=== PATIENT | male | born 1950 | race Two or more races ===

== ENCOUNTER → 2017-08-14 | Outpatient (CLI) | payer BC, MEDICARE ==
[~2017-08-14] MED LIST: ASPI-1471 PO; DOXA1TAB38 PO; METO-253 PO; OXYC-869 PO
--- NOTE | 2017-08-14 14:32 | RADIOLOGY IMAGING REPORT ---
FACILITY: [facility] [place] PATIENT NAME: David Ramirez : 1950 MR: [id number] V: [id number] EXAM DATE: ORDERING PHYSICIAN: SELVIN ALONSO TECHNOLOGIST: Location: [facility] [place] Patient: David Ramirez : 1950 Visit/Account:[id number] Date of Sevice: 08/14/2017 CAROTID HISTORY: Conjunctival hemorrhage, uncontrolled hypertension COMPARISON: None. FINDINGS: Grayscale, duplex and color Doppler interrogation of the extracranial carotid and vertebral arteries was performed bilateral. On the right, peak systolic velocities within the common and internal carotid arteries are 90 and 94 cm/sec respectively. No significant plaque identified. Antegrade flow within the common, internal a nd external carotid arteries as well as vertebral artery. ICA/CCA ratio 1.1. On the left, peak systolic velocities within the common and internal carotid arteries are 88 and 87 c m/sec respectively. A small amount of hard and soft plaques identified the left carotid bulb. Anteg rade flow within the common, internal and external carotid arteries as well as vertebral artery. ICA/ CCA ratio 1. IMPRESSION: Small amount of hard and soft plaque identified the left carotid bulb. No hemodynamically significan t lesions identified by velocity criteria Velocity criteria are extrapolated from diameter data as defined by the Society of Radiologists in [place] Consensus Conference Radiology 2003; 229;340-346 Report Dictated By: Alicia Hendricks MD at 08/14/2017 2:23 PM Report E-Signed By: Alicia Hendricks MD at 08/14/2017 2:25 PM WSN:[email or web address]
== END ==
LOC: US 13:09
PROVIDERS: ATTEND Family Medicine
DX: I65.22 Occlusion and stenosis of left carotid artery (principal)
CPT/HCPCS: 93880

== ENCOUNTER → 2018-04-01 | Outpatient (CLI) | payer BC ==
[~2018-04-01] MED LIST changes: +IOPAMIDOL 76% 75 ML INFUS BTL 75 ML ONE
--- NOTE | 2018-04-01 08:20 | RADIOLOGY IMAGING REPORT ---
FACILITY: [facility] PATIENT NAME: David Ramirez : 1950 MR: [id number] V: [id number] EXAM DATE: ORDERING PHYSICIAN: SELVIN ALONSO TECHNOLOGIST: Location: [facility] Patient: David Ramirez : 1950 Visit/Account:[id number] Date of Sevice: 04/01/2018 CHEST PA AND LAT HISTORY: Abnormal breath sounds on the left. COMPARISON: None FINDINGS: Cardiomediastinal contours: Normal Lungs and pleura: Normal Bones/soft tissues: Normal Other findings: None significant IMPRESSION: 1. Normal chest Report Dictated By: Ruperto Rios MD at 04/01/2018 8:14 AM Report E-Signed By: Ruperto Rios MD at 04/01/2018 8:16 AM WSN:[id number]
--- NOTE | 2018-04-01 08:46 | RADIOLOGY IMAGING REPORT ---
FACILITY: [facility] PATIENT NAME: David Ramirez : 1950 MR: [id number] V: [id number] EXAM DATE: ORDERING PHYSICIAN: SELVIN ALONSO TECHNOLOGIST: Location: [facility] [place] Patient: David Ramirez : 1950 Visit/Account:[id number] Date of Sevice: 04/01/2018 ABDOMEN/PELVIS WITH CONTRAST COMPARISONS: CT abdomen and pelvis dated September 03, 2015 ADDITIONAL PERTINENT HISTORY: Right-sided abdominal mass with history of small hernia in this region. TECHNIQUE: Multiple axial images were obtained from the lung bases through the lesser trochanters aft er the IV administration of IV contrast. One of the following dose optimization techniques was utili zed in the performance of this exam: Automated exposure control; adjustment of the mA and/or kV accor ding to the patient's size; or use of an iterative reconstruction technique. Specific details can b e referenced in the facility's radiology CT exam operational policy. CONTRAST: 75 ml of Isovue-370 FINDINGS: Lung bases: Minimal bibasilar regions of atelectatic change. Free air and free fluid: None. Liver: Negative. Spleen: Negative. Kidneys, ureters and urinary bladder: Uniform low-density lesions involving the right kidney which degroot ve slightly increased in size from previous exam. These remain compatible with simple cyst. The lar gest now measures 4.0 cm. Mild trabeculation of the bladder wall with mild bladder wall thickening w hich could be related to chronic bladder outlet obstruction related to an enlarged prostate. This is similar in appearance to previous exam. Adrenal glands: Negative. Pancreas: Negative. Gallbladder: Negative. Bowel and mesentery: Mild diverticulosis involving the rectosigmoid colon without evidence of diverti culitis. No bowel obstruction or other bowel abnormality noted. Pelvic contents: Moderate enlargement of the prostate. Lymph node assessment: Negative. Retroperitoneum: Negative. Abdominal vasculature: Mild atherosclerotic disease of the abdominal aorta and its major branches. Surrounding soft tissues: Continued findings of a fat-containing left-sided inguinal hernia. Otherwi se negative. No right-sided abdominal mass is noted. Osseous structures: Spondylitic change involving the thoracolumbar spine. No acute appearing bony ab normalities. IMPRESSION: 1. No acute intra-abdominal or intrapelvic process. 2. Specifically no evidence of mass involving the right aspect of the abdomen. Report Dictated By: Amador Chahal MD at 04/01/2018 8:31 AM Report E-Signed By: Amador Chahal MD at 04/01/2018 8:42 AM WSN:[email or web address]
== END ==
LOC: CT 02:06
PROVIDERS: ATTEND Family Medicine
DX: J98.11 Atelectasis (principal); K57.30 Diverticulosis of large intestine without perforation or abscess without bleeding; N40.0 Benign prostatic hyperplasia without lower urinary tract symptoms; I70.0 Atherosclerosis of aorta; K40.90 Unilateral inguinal hernia, without obstruction or gangrene, not specified as recurrent; M47.895 Other spondylosis, thoracolumbar region
CPT/HCPCS: 71046; 74177; Q9967